=== PATIENT | male | born 1980 | race Caucasian/White ===

== ENCOUNTER 2021-02-28 03:58 | Emergency (ER) | payer OTHER ==
[~2021-02-28] VITALS: Ht 182.9 cm; Wt 93.0 kg
[2021-02-28 03:59] VITALS: BP 122/76
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
[2021-02-28 06:09] VITALS: BP 126/80
--- NOTE | 2021-02-28 06:09 | NUR ---
Patient discharged with v/s stable. Written and verbal after care instructions given and explained. Patient verbalized understanding. Ambulatory with steady gait. All questions addressed prior to discharge. Advised to follow up with PMD.
== END 2021-02-28 06:09 | disposition home or self-care (01) ==
LOC: MED 03:58
DX: S00.81XA Abrasion of other part of head, initial encounter (principal); M79.641 Pain in right hand; R07.9 Chest pain, unspecified; R10.9 Unspecified abdominal pain; Z98.890 Other specified postprocedural states; V89.2XXA Person injured in unspecified motor-vehicle accident, traffic, initial encounter; Y93.89 Activity, other specified; Y92.410 Unspecified street and highway as the place of occurrence of the external cause; Y99.8 Other external cause status
CPT/HCPCS: 73130; 99284